=== PATIENT | female | born 2000 | race Caucasian/White ===

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

== ENCOUNTER 2020-01-27 22:26 | Emergency (ER) | payer OTHER ==
[~2020-01-27] VITALS: Ht 170.1 cm; Wt 124.7 kg
[~2020-01-27 22:26] MED LIST changes: +TAMIFLU 75MG CA75 MG PO; +TYLENOL325 M1 PO
== END 2020-01-28 00:30 | disposition home or self-care (01) ==
LOC: ED 22:26
DX: S93.401A Sprain of unspecified ligament of right ankle, initial encounter (principal); S89.91XA Unspecified injury of right lower leg, initial encounter; E66.01 Morbid (severe) obesity due to excess calories; J45.909 Unspecified asthma, uncomplicated; K21.9 Gastro-esophageal reflux disease without esophagitis; G43.909 Migraine, unspecified, not intractable, without status migrainosus; W18.39XA Other fall on same level, initial encounter; Y93.89 Activity, other specified; Y92.89 Other specified places as the place of occurrence of the external cause; Y99.8 Other external cause status

== ENCOUNTER 2020-06-24 06:02 | Emergency (ER) | payer OTHER ==
[~2020-06-24] VITALS: Ht 170.1 cm; Wt 124.7 kg
[2020-06-24] MEDS ORDERED: CEPHALEXIN500 M1 PO (06:27)
[2020-06-24] MEDS ORDERED: ACYCLOVIR400 MG PO (06:27)
== END 2020-06-24 07:02 | disposition home or self-care (01) ==
LOC: ED 06:02
DX: K13.0 Diseases of lips (principal); J45.909 Unspecified asthma, uncomplicated; K21.9 Gastro-esophageal reflux disease without esophagitis

== ENCOUNTER 2020-10-21 13:31 | Observation (INO) | payer OTHER ==
[~2020-10-21] VITALS: Ht 170.2 cm; Wt 126.1 kg
[~2020-10-21 13:31] MED LIST changes: +ACYCLOVIR400 MG PO; +CEPHALEXIN500 M1 PO
[2020-10-21 13:35] VITALS: BP 168/87
[2020-10-21 14:37] LABS: BASO % 0.4 % (0.0-1.0); EOS # 0.2 10*3/uL (0.0-0.4); EOS % 2.4 % (1.0-4.0); HEMATOCRIT 40.6 % (37.0-47.0); LYMPH # 2.4 10*3/uL (1.3-4.4); LYMPH % 24.7 % (27.0-41.0); MEAN CELL VOLUME 84.4 fl (81.0-99.0); MEAN CORPUSCULAR HGB 27.7 pg (27.0-31.0); MEAN CORPUSCULAR HGB CONC 32.8 g/dl (33.0-37.0); MEAN PLATELET VOLUME 9.8 fl (9.6-12.3); MONO # 0.6 10*3/uL (0.1-1.0); MONO % 6.5 % (3.0-9.0); NEUT # 6.4 10*3/uL (2.3-7.9); NEUT % 65.8 % (47.0-73.0); PLATELET COUNT AUTOMATED 326 10*3/uL (130-400); RED BLOOD COUNT 4.81 10*6/uL (4.10-5.10); RED CELL DISTRI WIDTH 12.6 % (0-14.5); WHITE BLOOD COUNT 9.8 10*3/uL (4.8-10.8)
[2020-10-21 14:59] LABS: ALBUMIN 3.3 gm/dl (3.1-4.5); ALKALINE PHOSPHATASE 80 U/L (45-117); BUN 10 mg/dl (7-24); CHLORIDE 105 mmol/L (98-107); CREATININE 0.67 mg/dL (0.55-1.02); LIPASE 53 U/L (73-393); POTASSIUM 3.8 mmol/L (3.5-5.1); SGOT/AST 18 IU/L (3-35); SGPT/ALT 32 U/L (12-78); SODIUM 138 mmol/L (136-145); TOTAL PROTEIN 6.7 gm/dL (6.4-8.2)
[2020-10-21 15:09] LABS: BETA-HCG, QUANT < 1.0 mIU/mL (1-3)
[2020-10-21 15:16] LABS: BILIRUBIN Negative (Negative); BLOOD Negative (Negative); CLARITY Clear (Clear); COLOR Yellow (Yellow); GLUCOSE Negative (Negative); KETONE Negative (Negative); LEUKO ESTERASE Trace (Negative); NITRITE Negative (Negative); SPECIFIC GRAVITY 1.015 (1.001-1.030)
[2020-10-21 15:34] LABS: BACTERIA TRACE
[2020-10-21 19:26] VITALS: BP 159/88
[2020-10-21 20:45] VITALS: BP 144/77
[2020-10-22] VITALS: BP 140/74
[2020-10-22 00:46] VITALS: BP 140/74
[2020-10-22 06:25] LABS: BASO % 0.1 % (0.0-1.0); LYMPH # 1.2 10*3/uL (1.3-4.4); LYMPH % 8.8 % (27.0-41.0); MEAN CELL VOLUME 86.3 fl (81.0-99.0); MEAN CORPUSCULAR HGB 27.9 pg (27.0-31.0); MEAN CORPUSCULAR HGB CONC 32.3 g/dl (33.0-37.0); MEAN PLATELET VOLUME 10.8 fl (9.6-12.3); MONO # 0.2 10*3/uL (0.1-1.0); MONO % 1.3 % (3.0-9.0); NEUT % 89.3 % (47.0-73.0); PLATELET COUNT AUTOMATED 235 10*3/uL (130-400); RED BLOOD COUNT 4.98 10*6/uL (4.10-5.10); RED CELL DISTRI WIDTH 12.5 % (0-14.5); WHITE BLOOD COUNT 13.5 10*3/uL (4.8-10.8)
[2020-10-22 06:37] LABS: BUN 11 mg/dl (7-24); CHLORIDE 105 mmol/L (98-107); CREATININE 0.89 mg/dL (0.55-1.02); POTASSIUM 4.3 mmol/L (3.5-5.1); SODIUM 138 mmol/L (136-145)
[2020-10-22 08:00] VITALS: BP 139/56
[2020-10-22 12:00] VITALS: BP 96/48
[2020-10-22 16:00] VITALS: BP 148/82
[2020-10-22] MEDS ORDERED: CYCLOBENZAPRINE10 MG PO ×2 (16:09)
== END 2020-10-22 18:20 | disposition home health service, planned readmission (86) ==
LOC: ED 13:31 → EDHOLD 18:13 → 5E 18:42
PROVIDERS: Emergency Medicine; Internal Medicine; ADMIT Internal Medicine; ATTEND Internal Medicine
DX: M54.16 Radiculopathy, lumbar region (principal); R00.0 Tachycardia, unspecified; R79.82 Elevated C-reactive protein (CRP); E11.9 Type 2 diabetes mellitus without complications; E28.2 Polycystic ovarian syndrome; E66.01 Morbid (severe) obesity due to excess calories; Z90.49 Acquired absence of other specified parts of digestive tract; Z91.09 Other allergy status, other than to drugs and biological substances

== ENCOUNTER 2020-11-25 13:35 | Inpatient (IN) | payer OTHER ==
[~2020-11-25] VITALS: Ht 170.1 cm; Wt 129.3 kg
[~2020-11-25 13:35] MED LIST changes: +CYCLOBENZAPRINE10 MG PO
[2020-11-25 13:41] VITALS: BP 138/67
[2020-11-25 15:08] LABS: BASO % 0.4 % (0.0-1.0); EOS # 0.2 10*3/uL (0.0-0.4); HEMATOCRIT 41.5 % (37.0-47.0); LYMPH # 3.2 10*3/uL (1.3-4.4); LYMPH % 34.3 % (27.0-41.0); MEAN CELL VOLUME 85.7 fl (81.0-99.0); MEAN CORPUSCULAR HGB 28.3 pg (27.0-31.0); MEAN PLATELET VOLUME 9.2 fl (9.6-12.3); MONO # 0.6 10*3/uL (0.1-1.0); NEUT # 5.2 10*3/uL (2.3-7.9); NEUT % 56.3 % (47.0-73.0); PLATELET COUNT AUTOMATED 374 10*3/uL (130-400); RED BLOOD COUNT 4.84 10*6/uL (4.10-5.10); RED CELL DISTRI WIDTH 13.2 % (0-14.5); WHITE BLOOD COUNT 9.2 10*3/uL (4.8-10.8)
[2020-11-25 15:21] LABS: ALBUMIN 3.5 gm/dl (3.1-4.5); ALKALINE PHOSPHATASE 81 U/L (45-117); BUN 8 mg/dl (7-24); CHLORIDE 107 mmol/L (98-107); POTASSIUM 3.9 mmol/L (3.5-5.1); SGOT/AST 13 IU/L (3-35); SGPT/ALT 32 U/L (12-78); SODIUM 140 mmol/L (136-145); TOTAL PROTEIN 7.2 gm/dL (6.4-8.2)
[2020-11-25 16:19] LABS: BILIRUBIN Negative (Negative); BLOOD Negative (Negative); CLARITY Cloudy (Clear); COLOR Yellow (Yellow); GLUCOSE Negative (Negative); KETONE Negative (Negative); LEUKO ESTERASE 2+ (Negative); NITRITE Negative (Negative); SPECIFIC GRAVITY 1.015 (1.001-1.030)
[2020-11-25 16:25] LABS: EPITHELIAL CELLS TNTC; RBC 0-2 rbc/hpf (0-2)
[2020-11-25 16:26] LABS: BACTERIA 2+
[2020-11-25] MEDS ORDERED: GLUCOPHAGE1000 MG PO (17:36)
[2020-11-25] MEDS ORDERED: PROZAC10 MG PO (17:36)
[2020-11-25 17:38] VITALS: BP 112/56
== END 2020-11-25 23:41 | disposition other institution (70) | DRG 347 ==
LOC: ED 13:35 → EDHOLD 16:19
PROVIDERS: Nurse Practitioner; ADMIT Internal Medicine; ATTEND Internal Medicine
DX: M54.16 Radiculopathy, lumbar region (principal); M51.26 Other intervertebral disc displacement, lumbar region; F32.9 Major depressive disorder, single episode, unspecified; E66.01 Morbid (severe) obesity due to excess calories; E11.9 Type 2 diabetes mellitus without complications; G89.29 Other chronic pain; Z90.49 Acquired absence of other specified parts of digestive tract; Z83.3 Family history of diabetes mellitus; Z81.8 Family history of other mental and behavioral disorders; Z83.6 Family history of other diseases of the respiratory system; Z68.25 Body mass index [BMI] 25.0-25.9, adult; Z79.899 Other long term (current) drug therapy

== ENCOUNTER 2021-03-21 10:13 | Emergency (ER) | payer OTHER ==
[~2021-03-21] VITALS: Ht 170.1 cm; Wt 129.3 kg
[~2021-03-21 10:13] MED LIST changes: +GLUCOPHAGE1000 MG PO; +PROZAC10 MG PO
[2021-03-21] MEDS ORDERED: VALTREX1000 MG PO (10:39)
== END 2021-03-21 11:00 | disposition home or self-care (01) ==
LOC: ED 10:13
DX: B02.9 Zoster without complications (principal); Z79.899 Other long term (current) drug therapy; Z90.49 Acquired absence of other specified parts of digestive tract

== ENCOUNTER 2021-03-22 23:30 | Emergency (ER) | payer OTHER ==
[~2021-03-22 23:30] MED LIST changes: +VALTREX1000 MG PO
[2021-03-23] MEDS ORDERED: SEPTDS PO (00:03)
[2021-03-23] MEDS ORDERED: CEPHALEXIN500 M1 PO (00:03)
== END 2021-03-23 02:27 | disposition home or self-care (01) ==
LOC: ED 23:30
DX: S80.862A Insect bite (nonvenomous), left lower leg, initial encounter (principal); Z79.899 Other long term (current) drug therapy; Z90.49 Acquired absence of other specified parts of digestive tract; W57.XXXA Bitten or stung by nonvenomous insect and other nonvenomous arthropods, initial encounter; Y93.89 Activity, other specified; Y92.89 Other specified places as the place of occurrence of the external cause; Y99.8 Other external cause status

== ENCOUNTER 2021-06-02 02:33 | Emergency (ER) | payer OTHER ==
[~2021-06-02] VITALS: Ht 170.1 cm; Wt 123.8 kg
[~2021-06-02 02:33] MED LIST changes: +SEPTDS PO
[2021-06-02] MEDS ORDERED: CEPHALEXIN500 M1 PO (02:51)
== END 2021-06-02 03:03 | disposition home or self-care (01) ==
LOC: ED 02:33
DX: L03.114 Cellulitis of left upper limb (principal); T63.441A Toxic effect of venom of bees, accidental (unintentional), initial encounter; Z79.899 Other long term (current) drug therapy; Y92.89 Other specified places as the place of occurrence of the external cause

== ENCOUNTER 2021-07-06 13:45 | Emergency (ER) | payer OTHER ==
[~2021-07-06] VITALS: Ht 170.1 cm; Wt 129.3 kg
[2021-07-07] MEDS ORDERED: REGLAN10 M1 PO (22:37)
== END 2021-07-06 18:17 | disposition left against medical advice (07) ==
LOC: ED 13:45
DX: R11.2 Nausea with vomiting, unspecified (principal); R19.7 Diarrhea, unspecified; Z53.21 Procedure and treatment not carried out due to patient leaving prior to being seen by health care provider

== ENCOUNTER 2021-07-07 20:02 | Emergency (ER) | payer OTHER ==
[~2021-07-07] VITALS: Ht 170.1 cm; Wt 129.3 kg
[2021-07-07 21:31] LABS: BASO # 0.1 10*3/uL (0.0-0.1); BASO % 0.6 % (0.0-1.0); EOS # 0.3 10*3/uL (0.0-0.4); EOS % 2.9 % (1.0-4.0); HEMATOCRIT 42.5 % (37.0-47.0); LYMPH % 37.5 % (27.0-41.0); MEAN CELL VOLUME 88.2 fl (81.0-99.0); MEAN CORPUSCULAR HGB 29.7 pg (27.0-31.0); MEAN CORPUSCULAR HGB CONC 33.6 g/dl (33.0-37.0); MEAN PLATELET VOLUME 9.4 fl (9.6-12.3); MONO # 0.7 10*3/uL (0.1-1.0); MONO % 6.9 % (3.0-9.0); NEUT # 5.5 10*3/uL (2.3-7.9); NEUT % 51.8 % (47.0-73.0); PLATELET COUNT AUTOMATED 434 10*3/uL (130-400); RED BLOOD COUNT 4.82 10*6/uL (4.10-5.10); RED CELL DISTRI WIDTH 12.3 % (0-14.5); WHITE BLOOD COUNT 10.6 10*3/uL (4.8-10.8)
[2021-07-07 21:47] LABS: ALBUMIN 3.5 gm/dl (3.1-4.5); ALKALINE PHOSPHATASE 81 U/L (45-117); BUN 7 mg/dl (7-24); CHLORIDE 107 mmol/L (98-107); CREATININE 0.75 mg/dL (0.55-1.02); SGOT/AST 11 IU/L (3-35); SGPT/ALT 31 U/L (12-78); SODIUM 140 mmol/L (136-145); TOTAL PROTEIN 7.3 gm/dL (6.4-8.2)
[2021-07-07 21:49] LABS: B-hCG (QUALITATIVE) NEGATIVE (NEGATIVE)
[2021-07-07 22:14] LABS: BILIRUBIN Negative (Negative); BLOOD Negative (Negative); GLUCOSE Negative (Negative); KETONE Negative (Negative); LEUKO ESTERASE Trace (Negative); NITRITE Negative (Negative); SPECIFIC GRAVITY 1.025 (1.001-1.030)
[2021-07-07 22:15] LABS: CLARITY Cloudy (Clear); COLOR Yellow (Yellow)
[2021-07-07 22:34] LABS: BACTERIA 1+; EPITHELIAL CELLS 21-30
[2021-07-07] MEDS ORDERED: REGLAN10 M1 PO (22:37)
== END 2021-07-07 23:27 | disposition home or self-care (01) ==
LOC: ED 20:02
PROVIDERS: Physician Assistant
DX: K52.9 Noninfective gastroenteritis and colitis, unspecified (principal)

== ENCOUNTER 2021-10-07 09:26 | Emergency (ER) | payer OTHER ==
[~2021-10-07] VITALS: Ht 170.1 cm; Wt 127.0 kg
[~2021-10-07 09:26] MED LIST changes: +REGLAN10 M1 PO
[2021-10-07 11:03] LABS: BILIRUBIN Negative (Negative); BLOOD Negative (Negative); CLARITY Clear (Clear); COLOR Yellow (Yellow); GLUCOSE Negative (Negative); KETONE Negative (Negative); LEUKO ESTERASE 1+ (Negative); NITRITE Negative (Negative); PH 7.5 (4.5-8.0)
[2021-10-07 11:16] LABS: BACTERIA 1+
[2021-10-07] MEDS ORDERED: TYLENOL325 M1 PO (11:39)
[2021-10-07] MEDS ORDERED: NAPROSYN500 MG PO (11:39)
[2021-10-07] MEDS ORDERED: CYCLOBENZAPRINE10 MG PO (11:39)
== END 2021-10-07 11:46 | disposition home or self-care (01) ==
LOC: ED 09:26
PROVIDERS: Emergency Medicine
DX: M54.50 Low back pain, unspecified (principal); E11.9 Type 2 diabetes mellitus without complications; J45.909 Unspecified asthma, uncomplicated; K21.9 Gastro-esophageal reflux disease without esophagitis; Z90.49 Acquired absence of other specified parts of digestive tract

== ENCOUNTER 2022-01-27 01:14 | Emergency (ER) | payer OTHER ==
[~2022-01-27] VITALS: Ht 172.7 cm; Wt 108.9 kg
[~2022-01-27 01:14] MED LIST changes: +NAPROSYN500 MG PO
[2022-01-27 01:59] LABS: BASO % 0.3 % (0.0-1.0); EOS % 0.2 % (1.0-4.0); HEMATOCRIT 42.6 % (37.0-47.0); LYMPH # 1.1 10*3/uL (1.3-4.4); LYMPH % 7.9 % (27.0-41.0); MEAN CELL VOLUME 85.5 fl (81.0-99.0); MEAN CORPUSCULAR HGB 29.7 pg (27.0-31.0); MEAN CORPUSCULAR HGB CONC 34.7 g/dl (33.0-37.0); MEAN PLATELET VOLUME 9.5 fl (9.6-12.3); MONO # 0.6 10*3/uL (0.1-1.0); MONO % 4.2 % (3.0-9.0); NEUT % 87.1 % (47.0-73.0); PLATELET COUNT AUTOMATED 370 10*3/uL (130-400); RED BLOOD COUNT 4.98 10*6/uL (4.10-5.10); WHITE BLOOD COUNT 13.7 10*3/uL (4.8-10.8)
[2022-01-27 02:11] LABS: BUN 10 mg/dl (7-24); CHLORIDE 105 mmol/L (98-107); CREATININE 0.74 mg/dL (0.55-1.02); POTASSIUM 3.8 mmol/L (3.5-5.1); SODIUM 136 mmol/L (136-145)
[2022-01-27 04:22] LABS: BILIRUBIN Negative (Negative); CLARITY Clear (Clear); COLOR Yellow (Yellow); LEUKO ESTERASE Trace (Negative)
[2022-01-27 04:35] LABS: BLOOD Negative (Negative); GLUCOSE Negative (Negative); KETONE 1+ (Negative); SPECIFIC GRAVITY > 1.030 (1.001-1.030)
[2022-01-27 04:36] LABS: NITRITE Negative (Negative)
[2022-01-27 04:53] LABS: WBC 0-2 wbc/hpf (0-5)
[2022-01-27 04:54] LABS: BACTERIA TRACE
[2022-01-27] MEDS ORDERED: ZOFRAN4 MG PO (08:06)
== END 2022-01-27 08:26 | disposition home or self-care (01) ==
LOC: ED 01:14
PROVIDERS: Emergency Medicine
DX: R11.2 Nausea with vomiting, unspecified (principal); Z20.822 Contact with and (suspected) exposure to COVID-19; R10.9 Unspecified abdominal pain; Z90.49 Acquired absence of other specified parts of digestive tract

== ENCOUNTER 2022-02-26 17:04 | Emergency (ER) | payer OTHER ==
[~2022-02-26] VITALS: Ht 170.1 cm; Wt 120.2 kg
[~2022-02-26 17:04] MED LIST changes: +ZOFRAN4 MG PO
[2022-02-26] MEDS ORDERED: AUGMENTIN 875-875 MG PO (18:33)
== END 2022-02-26 18:47 | disposition home or self-care (01) ==
LOC: ED 17:04
DX: J02.9 Acute pharyngitis, unspecified (principal)

== ENCOUNTER 2022-03-11 13:25 | Emergency (ER) | payer OTHER ==
[~2022-03-11] VITALS: Wt 122.5 kg
[~2022-03-11 13:25] MED LIST changes: +AUGMENTIN 875-875 MG PO
[2022-03-11] MEDS ORDERED: VIBRAMYCIN100 MG PO (15:00)
== END 2022-03-11 15:16 | disposition home or self-care (01) ==
LOC: ED 13:25
DX: S60.562A Insect bite (nonvenomous) of left hand, initial encounter (principal); L03.114 Cellulitis of left upper limb; Z90.49 Acquired absence of other specified parts of digestive tract; W57.XXXA Bitten or stung by nonvenomous insect and other nonvenomous arthropods, initial encounter; Y93.89 Activity, other specified; Y92.89 Other specified places as the place of occurrence of the external cause; Y99.8 Other external cause status

== ENCOUNTER 2022-09-17 16:54 | Emergency (ER) | payer OTHER ==
[~2022-09-17] VITALS: Ht 170.1 cm; Wt 124.7 kg
[~2022-09-17 16:54] MED LIST changes: +VIBRAMYCIN100 MG PO
[2022-09-17] MEDS ORDERED: AMOX-CLAV 875-1 EACH PO (20:04)
[2022-09-17] MEDS ORDERED: PREDNISONE20 M1 PO (20:04)
== END 2022-09-17 20:28 | disposition home or self-care (01) ==
LOC: ED 16:54
DX: J02.9 Acute pharyngitis, unspecified (principal); Z90.49 Acquired absence of other specified parts of digestive tract

== ENCOUNTER 2022-11-05 17:06 | Emergency (ER) | payer OTHER ==
[~2022-11-05] VITALS: Ht 170.1 cm; Wt 132.0 kg
[~2022-11-05 17:06] MED LIST changes: +AMOX-CLAV 875-1 EACH PO; +PREDNISONE20 M1 PO
== END 2022-11-05 19:36 | disposition home or self-care (01) ==
LOC: ED 17:06
DX: H10.31 Unspecified acute conjunctivitis, right eye (principal); F41.9 Anxiety disorder, unspecified; K21.9 Gastro-esophageal reflux disease without esophagitis; G43.909 Migraine, unspecified, not intractable, without status migrainosus; Z90.49 Acquired absence of other specified parts of digestive tract; Z98.890 Other specified postprocedural states

== ENCOUNTER 2022-11-29 14:17 | Emergency (ER) | payer OTHER ==
[~2022-11-29] VITALS: Wt 131.5 kg
[2022-11-29] MEDS ORDERED: HYDROCODONE-AC1 EAC1 PO (19:40)
[2022-11-29] MEDS ORDERED: MEDROL DOSEPAK4 MG PO (19:40)
[2022-11-29] MEDS ORDERED: CYCLOBENZAPRINE5 M3 PO (19:40)
== END 2022-11-29 20:07 | disposition home or self-care (01) ==
LOC: ED 14:17
DX: M54.50 Low back pain, unspecified (principal); Z90.49 Acquired absence of other specified parts of digestive tract

== ENCOUNTER 2023-01-25 17:17 | Emergency (ER) | payer OTHER ==
[~2023-01-25] VITALS: Ht 170.1 cm; Wt 127.0 kg
[~2023-01-25 17:17] MED LIST changes: +CYCLOBENZAPRINE5 M3 PO; +HYDROCODONE-AC1 EAC1 PO
[2023-01-25] MEDS ORDERED: NAPROSYN500 MG PO (20:08)
== END 2023-01-25 20:13 | disposition home or self-care (01) ==
LOC: ED 17:17
DX: S20.211A Contusion of right front wall of thorax, initial encounter (principal); M54.50 Low back pain, unspecified; J45.909 Unspecified asthma, uncomplicated; K21.9 Gastro-esophageal reflux disease without esophagitis; Z90.49 Acquired absence of other specified parts of digestive tract; Z98.890 Other specified postprocedural states; W19.XXXA Unspecified fall, initial encounter; Y93.89 Activity, other specified; Y92.830 Public park as the place of occurrence of the external cause; Y99.8 Other external cause status

== ENCOUNTER 2023-02-20 12:33 | Emergency (ER) | payer OTHER ==
[~2023-02-20] VITALS: Ht 170.1 cm; Wt 127.0 kg
[2023-02-20] MEDS ORDERED: AMOXICILLIN875 MG PO (13:18)
[2023-02-20] MEDS ORDERED: PREDNISONE50 MG PO (13:18)
== END 2023-02-20 13:25 | disposition home or self-care (01) ==
LOC: ED 12:33
DX: J02.9 Acute pharyngitis, unspecified (principal); J45.909 Unspecified asthma, uncomplicated; K21.9 Gastro-esophageal reflux disease without esophagitis; Z90.49 Acquired absence of other specified parts of digestive tract; Z98.890 Other specified postprocedural states

== ENCOUNTER 2023-03-29 05:17 | Emergency (ER) | payer OTHER ==
[~2023-03-29] VITALS: Ht 170.1 cm; Wt 131.5 kg
[~2023-03-29 05:17] MED LIST changes: +AMOXICILLIN875 MG PO; +PREDNISONE50 MG PO
[2023-03-29] MEDS ORDERED: AMOX-CLAV 875-1 EACH PO (05:56)
[2023-03-30] MEDS ORDERED: OFLOXACIN 10 ML10 M2 OT (06:08)
[2023-03-30] MEDS ORDERED: IBUPROFEN600 MG PO (06:09)
[2023-03-30] MEDS ORDERED: CIPRODEX 0.3%-7.5 ML OT (06:28)
== END 2023-03-29 06:11 | disposition home or self-care (01) ==
LOC: ED 05:17
DX: H60.91 Unspecified otitis externa, right ear (principal); J45.909 Unspecified asthma, uncomplicated; K21.9 Gastro-esophageal reflux disease without esophagitis; G43.909 Migraine, unspecified, not intractable, without status migrainosus; Z90.49 Acquired absence of other specified parts of digestive tract; Z98.890 Other specified postprocedural states

== ENCOUNTER 2023-03-30 05:58 | Emergency (ER) | payer OTHER ==
[~2023-03-30] VITALS: Ht 170.1 cm; Wt 133.8 kg
[2023-03-30] MEDS ORDERED: OFLOXACIN 10 ML10 M2 OT (06:08)
[2023-03-30] MEDS ORDERED: IBUPROFEN600 MG PO (06:09)
[2023-03-30] MEDS ORDERED: CIPRODEX 0.3%-7.5 ML OT (06:28)
== END 2023-03-30 06:37 | disposition home or self-care (01) ==
LOC: ED 05:58
DX: H66.91 Otitis media, unspecified, right ear (principal); Z79.2 Long term (current) use of antibiotics; Z79.899 Other long term (current) drug therapy; Z90.49 Acquired absence of other specified parts of digestive tract

== ENCOUNTER 2024-03-18 01:16 | Emergency (ER) | payer OTHER ==
[~2024-03-18] VITALS: Ht 172.7 cm; Wt 124.7 kg
[~2024-03-18 01:16] MED LIST changes: +CIPRODEX 0.3%-7.5 ML OT; +IBUPROFEN600 MG PO; +OFLOXACIN 10 ML10 M2 OT
[2024-03-18] MEDS ORDERED: Dexamethasone Sodium Phospha 20 MG/5 ML VIAL IM ONE (01:45)
[2024-03-18] MEDS ORDERED: Amoxicillin/Clavulanate Pota 875 MG TAB PO ONE (01:45)
[2024-03-18] MEDS ORDERED: AMOX-CLAV 875-1 EACH PO (01:47)
[2024-03-18] MEDS ORDERED: MEDROL DOSEPAK4 MG PO (01:47)
== END 2024-03-18 02:10 | disposition home or self-care (01) ==
LOC: ED 01:16
DX: H66.91 Otitis media, unspecified, right ear (principal); Z79.2 Long term (current) use of antibiotics; Z79.899 Other long term (current) drug therapy; Z90.49 Acquired absence of other specified parts of digestive tract

== ENCOUNTER 2024-08-29 05:52 | Emergency (ER) | payer BC ==
[~2024-08-29] VITALS: Ht 167.6 cm; Wt 127.2 kg
[2024-08-29] MEDS ORDERED: PREDNISONE20 M1 PO (06:04)
[2024-08-29] MEDS ORDERED: methylPREDNISolone sod succ 125 MG VIAL IM ONE (06:10)
== END 2024-08-29 06:31 | disposition home or self-care (01) ==
LOC: ED 05:52
DX: B34.9 Viral infection, unspecified (principal); J45.909 Unspecified asthma, uncomplicated; K21.9 Gastro-esophageal reflux disease without esophagitis; Z90.49 Acquired absence of other specified parts of digestive tract; Z98.890 Other specified postprocedural states

== ENCOUNTER 2024-09-22 00:19 | Emergency (ER) | payer BC ==
[~2024-09-22] VITALS: Ht 167.6 cm; Wt 124.7 kg
[2024-09-22] MEDS ORDERED: hydrOXYzine pamoate 25 MG CAP PO ONE (00:40)
[2024-09-22 00:53] LABS: BASO # 0.1 10*3/uL (0.0-0.1); BASO % 0.4 % (0.0-1.0); EOS # 0.3 10*3/uL (0.0-0.4); EOS % 2.6 % (1.0-4.0); HEMATOCRIT 38.9 % (37.0-47.0); MEAN CORPUSCULAR HGB 27.4 pg (27.0-31.0); MEAN CORPUSCULAR HGB CONC 32.6 g/dl (33.0-37.0); MONO # 0.9 10*3/uL (0.1-1.0); MONO % 7.4 % (3.0-9.0); NEUT # 6.2 10*3/uL (2.3-7.9); NEUT % 54.3 % (47.0-73.0); PLATELET COUNT AUTOMATED 415 10*3/uL (130-400); RED BLOOD COUNT 4.63 10*6/uL (4.10-5.10); RED CELL DISTRI WIDTH 13.8 % (0-14.5); WHITE BLOOD COUNT 11.5 10*3/uL (4.8-10.8)
[2024-09-22 01:32] LABS: BUN 13 mg/dl (9-23); CHLORIDE 107 mmol/L (98-107); POTASSIUM 3.8 mmol/L (3.4-5.1)
[2024-09-22] MEDS ORDERED: CYCLOBENZAPRINE5 M3 PO (02:08)
== END 2024-09-22 02:12 | disposition home or self-care (01) ==
LOC: ED 00:19
PROVIDERS: Internal Medicine
DX: S29.011A Strain of muscle and tendon of front wall of thorax, initial encounter (principal); J45.909 Unspecified asthma, uncomplicated; K21.9 Gastro-esophageal reflux disease without esophagitis; F41.9 Anxiety disorder, unspecified; Z90.49 Acquired absence of other specified parts of digestive tract; Z98.890 Other specified postprocedural states; X58.XXXA Exposure to other specified factors, initial encounter; Y93.89 Activity, other specified; Y92.89 Other specified places as the place of occurrence of the external cause; Y99.8 Other external cause status

== ENCOUNTER 2025-07-14 11:10 | Emergency (ER) | payer MEDICAID ==
[~2025-07-14] VITALS: Ht 165.1 cm; Wt 117.9 kg
[2025-07-14] MEDS ORDERED: CYCLOBENZAPRINE10 MG PO (11:51)
[2025-07-14] MEDS ORDERED: Motrin,Rufen800 MG PO (11:51)
[2025-07-14] MEDS ORDERED: Cyclobenzaprine Hydrochlorid 10 MG TAB PO ONE (11:55)
[2025-07-14] MEDS ORDERED: IBUPROFEN 800 MG TAB PO ONE (11:55)
== END 2025-07-14 12:22 | disposition home or self-care (01) ==
LOC: ED 11:10
DX: S46.912A Strain of unspecified muscle, fascia and tendon at shoulder and upper arm level, left arm, initial encounter (principal); R07.89 Other chest pain; J45.909 Unspecified asthma, uncomplicated; K21.9 Gastro-esophageal reflux disease without esophagitis; E66.01 Morbid (severe) obesity due to excess calories; Z90.49 Acquired absence of other specified parts of digestive tract; X58.XXXA Exposure to other specified factors, initial encounter; Y93.89 Activity, other specified; Y92.89 Other specified places as the place of occurrence of the external cause; Y99.8 Other external cause status

== ENCOUNTER 2025-07-24 23:16 | Emergency (ER) | payer OTHER ==
[~2025-07-24] VITALS: Ht 165.1 cm; Wt 117.9 kg
[2025-07-24] MEDS ORDERED: CEPHALEXIN 500 MG CAP PO ONE (23:45)
[2025-07-24] MEDS ORDERED: CEPHALEXIN500 M1 PO (23:46)
== END 2025-07-25 00:02 | disposition home or self-care (01) ==
LOC: ED 23:16
DX: T63.461A Toxic effect of venom of wasps, accidental (unintentional), initial encounter (principal); L03.114 Cellulitis of left upper limb; L53.0 Toxic erythema; Y92.89 Other specified places as the place of occurrence of the external cause; Z90.49 Acquired absence of other specified parts of digestive tract

== ENCOUNTER → 2025-08-07 | Outpatient (CLI) | payer OTHER | END | disposition home or self-care (01) | LOC: LAB 09:24 | PROVIDERS: ATTEND Internal Medicine Endocrinology, Diabetes & Metabolism | DX: E28.2 Polycystic ovarian syndrome (principal); E24.0 Pituitary-dependent Cushing's disease ==

== ENCOUNTER → 2025-08-08 | Outpatient (CLI) | payer OTHER | END | disposition home or self-care (01) | LOC: LAB 07:46 | PROVIDERS: ATTEND Internal Medicine Endocrinology, Diabetes & Metabolism | DX: E28.2 Polycystic ovarian syndrome (principal); E24.0 Pituitary-dependent Cushing's disease ==

== ENCOUNTER 2025-08-21 23:20 | Emergency (ER) | payer OTHER ==
[~2025-08-21] VITALS: Ht 165.1 cm; Wt 122.5 kg
== END 2025-08-22 01:12 | disposition home or self-care (01) ==
LOC: ED 23:20
DX: R07.89 Other chest pain (principal); J45.909 Unspecified asthma, uncomplicated; K21.9 Gastro-esophageal reflux disease without esophagitis; Z90.49 Acquired absence of other specified parts of digestive tract